=== PATIENT | male | born 1955 | race African-American/Black ===

== ENCOUNTER 2016-12-02 09:01 | Emergency (ER) | payer BC ==
[~2016-12-02] VITALS: Ht 171.4 cm; Wt 86.2 kg
[2016-12-02 09:19] VITALS: BP 137/83
[2016-12-02] MEDS ORDERED: AZIT250T PO (09:39)
--- NOTE | 2016-12-02 09:40 | PHYS DOC ---
Past Medical History Past Medical History: Diabetes-Type II, High Cholesterol, Hypertension, Other Additional Past Medical Histor: HEART DEFECT, MURMER Past Surgical History: Coronary Bypass Surgery, Other Additional Past Surgical Histo: CABG @ 7 Y.O, RIGHT EYE PLATE Alcohol Use: Occasionally Drug Use: None Adult General Chief Complaint Chief Complaint: SORE THROAT HPI HPI Patient is a 61 year old male presents to the emergency department stating that he has a sore throat and drainage coming from his right eye. He states that he has had a cough and congestion with nasal drainage for the the last 3 or 4 days. Patient also states that he has had sinus pressure and headache. Patient also states that he had oral sex on . And he woke up with some of the symptoms on Saturday. Patient states he has taken Tylenol over-the- counter. He state however he does have a history of high blood pressure. Review of Systems Review of Systems Constitutional: Denies fever or chills [] Eyes: Denies change in visual acuity, C/o redness, with clear drainage [] HENT: nasal congestion and sore throat [] Respiratory: Denies cough or shortness of breath [] Cardiovascular: No additional information not addressed in HPI [] GI: Denies abdominal pain, nausea, vomiting, bloody stools or diarrhea [] : Denies dysuria or hematuria [] Musculoskeletal: Denies back pain or joint pain [] Integument: Denies rash or skin lesions [] Neurologic: Denies headache, focal weakness or sensory changes [] Allergies Allergies Allergies Coded Allergies Type Severity Reaction Last Updated Verified lisinopril Allergy Intermediate 12/02/16 Yes Physical Exam Physical Exam Constitutional: Well developed, well nourished, no acute distress, non-toxic appearance. [] HENT: Normocephalic, atraumatic, bilateral external ears normal, oropharynx moist, no oral exudates, nose normal. Bilateral TM with bulging noted. Patient with frontal and maxillary sinus tenderness. Throat with erythema with post nasal drip noted. Eyes: PERRLA, EOMI, right conjunctiva red with clear drainage noted, Eye unable to open completely Neck: Normal range of motion, no tenderness, supple, no stridor. [] Cardiovascular:Heart rate regular rhythm, no murmur [] Lungs & Thorax: Bilateral breath sounds clear to auscultation [] Skin: Warm, dry, no erythema, no rash. [] Back: No tenderness Extremities: No tenderness, no cyanosis, no clubbing, ROM intact, no edema. [] Neurologic: Alert and oriented X 3, normal motor function, normal sensory function, no focal deficits noted. [] Psychologic: Affect normal, judgement normal, mood normal. [] Current Patient Data Vital Signs Vital Signs Date Time Temp Pulse Resp B/P Pulse Ox O2 Delivery O2 Flow Rate FiO2 12/02/16 09:19 98.2 97 18 95 Room Air 98.2 EKG EKG [] Radiology/Procedures Radiology/Procedures [] Course & Med Decision Making Course & Med Decision Making Pertinent Labs and Imaging studies reviewed. (See chart for details) I Patient will be provided with Zithromax for URI and sore throat. I believe the conjunctivitis is a viral infection. Patient will be discharged home in stable condition. Recommended plenty of fluids, Tylenol or Ibuprofen for headache and coricidin HBP. Patient was provided with signs and symptoms to return to the emergency department. Patient agrees with discharge instructions, treatment regimen and followup recommendations. [] Dragon Disclaimer Dragon Disclaimer This electronic medical record was generated, in whole or in part, using a voice recognition dictation system. Departure Departure Impression: Primary Impression: Right conjunctivitis Additional Impression: URI (upper respiratory infection) Disposition: 01 HOME, SELF-CARE Condition: STABLE Patient Instructions: Bacterial Conjunctivitis, [id number], Upper Respiratory Infection, Adult, [id number] Additional Instructions: Home to rest Medication as prescribed Tylenol or Ibuprofen for pain and discomfort Coricidin HBP for congestion Drink plenty of fluids Followup with primary care provider in 3-5 days Return to emergency department as needed for signs and symptoms that become worse. Scripts Azithromycin (Zithromax)250 Mg Atuxuc880 Mg PO DAILY ANTI-BIOTIC #6 TAB 2 tablets today then 1 tablet daily until gone Prov:PETRA ROBERTSON NP 12/02/16 Problem Qualifiers PETRA ROBERTSON NP Dec 02, 2016 09:40
== END 2016-12-02 09:46 | disposition home or self-care (01) ==
LOC: ER 09:01
DX: J06.9 Acute upper respiratory infection, unspecified (principal); H10.9 Unspecified conjunctivitis; E11.9 Type 2 diabetes mellitus without complications; E78.00 Pure hypercholesterolemia, unspecified; I10 Essential (primary) hypertension; Z95.5 Presence of coronary angioplasty implant and graft; Z88.8 Allergy status to other drugs, medicaments and biological substances
CPT/HCPCS: 99283